=== PATIENT | male | born 1985 | race American Indian/Alaskan Native ===

== ENCOUNTER 2018-01-01 02:03 | Emergency (ER) | payer OTHER ==
[2018-01-01 02:29] VITALS: BP 136/90
== END 2018-01-01 07:32 | disposition left against medical advice (07) ==
LOC: ED 02:03
DX: K08.89 Other specified disorders of teeth and supporting structures (principal); Z53.21 Procedure and treatment not carried out due to patient leaving prior to being seen by health care provider